=== PATIENT | male | born 1970 | race Caucasian/White ===

== ENCOUNTER 2018-06-25 00:17 | Emergency (ER) | payer SELFPAY ==
[~2018-06-25] VITALS: Ht 185.4 cm; Wt 85.0 kg
[2018-06-25 00:23] VITALS: BP 112/76
[2018-06-25] MEDS ORDERED: HYDROmorphone 2mg tablet PO STA (00:33)
[2018-06-25] MEDS ORDERED: normal saline 1000ML IV soln IVB ONE (00:35)
[2018-06-25] MEDS ORDERED: ondansetron/PF 4mg/2ml inj IV ONE (00:35)
[2018-06-25] MEDS ORDERED: FURO-150 PO (00:37)
[2018-06-25] MEDS ORDERED: LISI20TA PO (00:37)
[2018-06-25] MEDS ORDERED: HYDR2TAB28 PO (00:37)
[2018-06-25] MEDS ORDERED: GABA400C PO (00:37)
[2018-06-25] MEDS ORDERED: BUSP15TA12 PO (00:37)
[2018-06-25] MEDS ORDERED: ONDA8TAB9 SL (00:37)
[2018-06-25 01:41] LABS: BASOPHILS % (AUTO) 0.5 % (0-1); EOSINOPHILS # (AUTO) 0.1 X10'3 (0-0.9); EOSINOPHILS % (AUTO) 4.2 % (0-6); HEMATOCRIT 29.3 % (42.0-52.0); HEMOGLOBIN 9.9 g/dl (14.0-17.9); LYMPHOCYTES # (AUTO) 0.6 X10'3 (1.1-4.8); LYMPHOCYTES % (AUTO) 21.2 % (21-51); MEAN CORPUSCULAR HEMOGLOBIN 32.1 PG (27.0-31.0); MEAN CORPUSCULAR HGB CONC 33.8 % (33.0-36.5); MEAN CORPUSCULAR VOLUME 94.9 FL (78-98); MEAN PLATELET VOLUME 8.2 FL (7.4-10.4); MONOCYTES # (AUTO) 0.2 X10'3 (0-0.9); MONOCYTES % (AUTO) 8.1 % (2-12); NEUTROPHILS # (AUTO) 1.8 X10'3 (1.8-7.7); PLATELET COUNT 58 X10'3 (140-440); RED BLOOD COUNT 3.08 X10'6 (4.70-6.10); RED CELL DISTRIBUTION WIDTH 18.9 % (11.5-14.5); WHITE BLOOD COUNT 2.7 X10'3 (4.5-11.0)
[2018-06-25 01:43] LABS: ALANINE AMINOTRANSFERASE 169 U/L (12-78); ALBUMIN 2.6 G/DL (3.4-5.0); ALBUMIN/GLOBULIN RATIO 0.6 (1.1-1.5); ALKALINE PHOSPHATASE 126 IU/L (46-116); ANION GAP 11 (8-16); ASPARTATE AMINO TRANSFERASE 133 U/L (10-37); BILIRUBIN,TOTAL 2.8 MG/DL (0.1-1.0); BLOOD UREA NITROGEN 12 MG/DL (7-18); BUN/CREATININE RATIO 16.4 (5.4-32.0); CALCIUM 7.9 MG/DL (8.5-10.1); CHLORIDE 107 MMOL/L (99-107); CREATININE 0.73 MG/DL (0.60-1.10); GLUCOSE 96 MG/DL (70-104); LIPASE 86 U/L (73-393); SODIUM 144 MMOL/L (135-145); TOTAL CARBON DIOXIDE 26.4 MMOL/L (24-32); TOTAL PROTEIN 6.7 G/DL (6.4-8.2); eGFR > 90 ML/MIN
[2018-06-25 01:56] LABS: POTASSIUM 2.9 MMOL/L (3.5-5.1)
[2018-06-25 01:58] LABS: ANISOCYTOSIS 2+; PLATELET ESTIMATE DECREASED; TOTAL CELLS COUNTED 100
[2018-06-25] MEDS ORDERED: potassium 10mEq/100ml NS w/LIDOcaine (10mg/bag) IV ONE (02:05)
== END 2018-06-25 03:46 | disposition home or self-care (01) ==
LOC: ER 00:18
DX: R11.2 Nausea with vomiting, unspecified (principal); R10.84 Generalized abdominal pain; R50.9 Fever, unspecified; I10 Essential (primary) hypertension; Z79.899 Other long term (current) drug therapy; Z59.0 Homelessness
CPT/HCPCS: 36415; 80053; 83690; 85025; 96361; 96374; 99284; J2405; J3480; J7030